=== PATIENT | female | born 1960 | race Caucasian/White ===

== ENCOUNTER 2020-09-14 07:12 | Emergency (ER) | payer OTHER, SELFPAY ==
[2020-09-14 07:30] VITALS: BP 176/92; PULSE 82; RESP 18; TEMP 36.6; O2SAT 98; BMI 24.7
--- NOTE | 2020-09-14 08:42 | ED.DENTAL ---
HPI - Dental/Oral General Chief complaint: Dental/Oral Stated complaint: DENTAL PAIN Time Seen by Provider: 09/14/20 08:28 Source: patient Mode of arrival: ambulatory History of Present Illness HPI Narrative: 60-year-old female with a past medical history of hypertension presenting to ED complaining of left-sided upper and lower dental pain worsening since last week. Reports poor dentition at baseline, however worsening recently. Admits pain radiates to the ear and throat, which decreased p.o. intake due to pain. Denies fever, chills, drainage from area, oral swelling/inability to swallow/drooling MD Complaint: tooth pain Related Data Previous Rx's Medication Instructions Recorded acetaminophen-codeine 1 tab PO Q8H PRN 3 Days #9 tab 09/14/20 amoxicillin-pot clavulanate 1 tab PO Q12H 7 Days #14 tab 09/14/20 [Augmentin] Allergies Allergy/AdvReac Type Severity Reaction Status Date / Time acetaminophen [From Percocet] Allergy Mild Itching Verified 09/14/20 07:55 oxycodone [From Percocet] Allergy Mild Itching Verified 09/14/20 07:55 Review of Systems Review of Systems: Constitutional: No Weight loss, No Fever, No Chills ENT/Mouth: + Ear Pain, No Nasal Congestion, No Sinus Pain, No Hoarseness, No sore throat, No Rhinorrhea, No Swallowing Difficulty, +dental pain Skin: No Skin Lesions, No rash Yes all other systems are reviewed and are negative PMFSH Past Medical History Attestation statement: The following information was validated with the patient. Medical History (Updated 09/14/20 @ 08:42 by NASEEM Islas) Hypertension Social History Social History Advance Directives: No Advance Directives Information Provided: No Physical Exam Vital Signs: Vital Signs: Vital Signs Temp Pulse Resp BP Pulse Ox 09/14/20 07:30 97.8 F 82 18 176/92 H 98 Body Mass Index 24.7 Const: General: cooperative and healthy appearing Orientation/consciousness: patient oriented x3 Limitations: no limitations HENMT: Other: diffuse dental caries. Right lower gums irritated /erythematous with ttp. No fluctuance/induration or signs of cellulitis. No visible pulp Head: Yes normal to inspection Ears: hearing grossly normal bilaterally and TM's normal bilaterally General nose exam: Normal external nose present Face and sinus: Yes normal facial exam Mouth: Normal oral and palatal mucosa present and oropharynx normal Teeth and gingiva: caries and poor dentition Throat: Yes posterior oropharynx normal and Yes uvula midline Eyes: General: appearance normal, both eyes and all related structures EOM: EOMs intact bilaterally Neck: Neck: Yes normal visual inspection Skin: Rashes: no rashes Wounds: no wounds Neuro: General: patient oriented x3 Gait exam (Neuro): Normal gait present Extrem: General: Yes normal to inspection MDM - Dental/Oral MDM Narrative Medical decision making narrative: likely early dental infection/ acute on chronic dental pain Differential Diagnosis Differential diagnosis: Likely dental caries and toothache Discharge Plan Discharge Clinical Impression: Toothache, Dental caries Patient Disposition: Home, Self-Care Instructions: Toothache (ED), Mouth Care (ED) Additional Instructions: you likely have an early dental infection. Augmentin as an antibiotic, take as prescribed Tylenol with codeine is a opiate pain medication, take with food, take only when pain is severe In addition he should be taking Tylenol/ and Motrin at home Do not exceed 4 g of Tylenol in 1 day Follow-up with her dentist on a pain becomes unbearable, you fevers, or drainage from her mouth return to the ED Prescriptions: New amoxicillin-pot clavulanate [Augmentin] 875-125 mg tablet 1 tab PO Q12H 7 Days Qty: 14 RF: 0 acetaminophen-codeine 300-30 mg tablet 1 tab PO Q8H PRN (Reason: pain) 3 Days Qty: 9 RF: 0 Referrals: Millie Torres MD [Primary Care Provider] - 2 days Stand Alone Forms: Work/School Release
== END 2020-09-14 08:57 | disposition home or self-care (01) ==
PROVIDERS: Emergency Provider Emergency Medicine; PCP Family Medicine
DX: K02.9 Dental caries, unspecified (principal); K08.89 Other specified disorders of teeth and supporting structures; I10 Essential (primary) hypertension
CPT/HCPCS: 99283; 99284

== ENCOUNTER 2020-09-21 10:13 | Outpatient (REF) | payer OTHER, SELFPAY ==
[2020-09-21 10:53] LABS: COVID-19 Test Negative (Negative)
== END 2020-09-21 10:14 | disposition home or self-care (01) ==
LOC: HO.LAB 10:13
PROVIDERS: Visit Provider Internal Medicine
DX: Z20.828 Contact with and (suspected) exposure to other viral communicable diseases (principal)
CPT/HCPCS: 87635

== ENCOUNTER 2020-09-26 10:04 | Outpatient (REF) | payer OTHER, SELFPAY ==
[2020-09-26 10:40] LABS: COVID-19 Test Negative (Negative)
== END 2020-09-26 10:05 | disposition home or self-care (01) ==
LOC: HO.LAB 10:04
PROVIDERS: Visit Provider Internal Medicine
DX: Z20.828 Contact with and (suspected) exposure to other viral communicable diseases (principal)
CPT/HCPCS: 87635

== ENCOUNTER 2021-08-21 06:31 | Emergency (ER) | payer OTHER, SELFPAY ==
[2021-08-21 06:56] VITALS: BP 168/99; PULSE 77; RESP 16; TEMP 37.1; O2SAT 98; BMI 27.1
--- NOTE | 2021-08-21 06:59 | ED.GENADULT ---
HPI - General Adult General Chief complaint: General Medical Stated complaint: Throat pain, COVID - per PT Time Seen by Provider: 08/21/21 06:58 Source: patient Mode of arrival: ambulatory Limitations: no limitations History of Present Illness HPI narrative: 61-year-old female came in for evaluation of sore throat. This is a 61-year-old female came in for sore throat for a week, patient was seen and evaluated by her PCP had a negative COVID testing, patient was started on Z-Oumar (last dose is today). Patient's symptoms still persist patient work as a nurse in the hospital, however patient has been vaccinated for COVID and using universal precautions. Related Data Previous Rx's Medication Instructions Recorded acetaminophen 300 mg-codeine 30 mg 1 tab PO Q8H PRN 3 Days #9 tab 09/14/20 tablet amoxicillin 875 mg-potassium 1 tab PO Q12H 7 Days #14 tab 09/14/20 clavulanate 125 mg tablet (Augmentin) prednisone 20 mg tablet 20 mg PO BID #10 tab 08/21/21 Allergies Allergy/AdvReac Type Severity Reaction Status Date / Time acetaminophen [From Percocet] Allergy Mild Itching Verified 09/14/20 07:55 oxycodone [From Percocet] Allergy Mild Itching Verified 09/14/20 07:55 Review of Systems Review of Systems: All other systems are reviewed and are negative Constitutional: Reports as per HPI and Reports no additional constitutional complaints Eyes: Reports as per HPI and Reports no additional eye complaints Reports system reviewed and no additional complaints, except as documented Cardiovascular: Reports as per HPI and Reports no additional cardiovascular complaints Respiratory: Reports as per HPI and Reports no additional respiratory complaints Gastrointestinal: Reports as per HPI and Reports no additional gastrointestinal complaints Genitourinary: Reports no additional female genitourinary complaints Musculoskeletal: Reports no additional musculoskeletal complaints Skin/Breast: Reports system reviewed and no additional complaints, except as docu Psychiatric: Reports no additional psychiatric complaints Endocrine: Reports no additional endocrine complaints Hematologic/Lymphatic: Reports no additional hematologic/lymphatic complaints Allergic/Immunologic: Reports no additional allergic/immunologic complaints Reports system reviewed and no additional complaints, except as documented and Reports Abnormal speech present PMFSH Past Medical History Medical History Hypertension Social History Social History Advance Directives: No Advance Directives Information Provided: Yes Physical Exam Vital Signs: Vital Signs: Last Vital Signs Temp 98.7 F 08/21/21 06:56 Pulse 77 08/21/21 06:56 Resp 16 08/21/21 06:56 BP 168/99 H 08/21/21 06:56 Pulse Ox 98 08/21/21 06:56 Body Mass Index 27.1 Vital signs have been reviewed as appeared to be correct. Blood pressure normal. Heart rate normal. Respiration rate normal. Temperature normal. Oxygen saturation normal. Appearance: Alert. Oriented X3. No acute distress. Head: Normal external exam. Normocephalic. Atraumatic. No Daniel signs noted. No raccoon eyes noted Eyes: PERRLA. EOMI. Conjunctiva and sclera normal. Eyelids normal. ENT: TM's Normal. Pharynx normal. Uvula midline. Moist mucous membranes. No trismus noted. No drooling noted. No muffled voice noted. Neck: Normal inspection. Neck supple. FROM. No adenopathy. Thyroid Normal. No meningeal signs. No neck mass noted. CVS: Normal heart rate and rhythm. Heart sound normal. No murmurs noted. Pulses normal throughout. Respiratory: No respiratory distress. Painless inspiration. Breath sounds normal. No wheezes/rales/rhonchi noted. Chest nontender. No accessory muscle usage noted or decreased air movement noted. Abdomen: Soft and nontender. Bowel sounds normal in all 4 quadrants. No distention noted. No organomegaly noted. No visible injury noted. Back: No CVA tenderness. Full range of motion noted. Skin: Skin warm and dry. Normal skin color. Normal skin turgor. No rashes/lesions/lacerations noted. Extremities: No lower extremity edema. Extremities exhibit normal range of motion. Extremities nontender. Neuro: Oriented X 3. Cranial nerve exam: II-XII are grossly intact No motor deficit. No sensory deficit. Reflexes normal. Course Course Course Narrative: Assessment and plan. 59-year-old female with viral meningitis, no evidence of strep pharyngitis, negative COVID testing. Patient finish course of Z-Oumar with no improvement. Will prescribe 5 days of flow does course of prednisone might help the patient's symptoms. Medical Decision Making Lab Data Lab results reviewed: Yes I reviewed the patient's lab results. Labs: Lab Results 08/21/21 08/21/21 08/21/21 Range/Units 07:50 07:55 08:04 Coronavirus (PCR) NEGATIVE (Negative) Monoscreen Negative (Negative) Influenza Type A (PCR) NEGATIVE (Negative) Influenza Type B (PCR) NEGATIVE (Negative) RSV RNA Qual (PCR) NEGATIVE (Negative) S. pyogenes GrpA KAYLA Negative (Negative) Discharge Plan Discharge Clinical Impression: Acute viral pharyngitis Patient Disposition: Home, Self-Care Instructions: Pharyngitis (ED) Prescriptions: New prednisone 20 mg tablet 20 mg PO BID Qty: 10 RF: 0 No Action amoxicillin-pot clavulanate [Augmentin] 875-125 mg tablet 1 tab PO Q12H 7 Days Qty: 14 RF: 0 acetaminophen-codeine 300-30 mg tablet 1 tab PO Q8H PRN (Reason: pain) 3 Days Qty: 9 RF: 0 Referrals: Physician,Nonstaff [Primary Care Provider] - 2 days
[2021-08-21 08:12] LABS: Strep A Nucleic Acid Negative (Negative)
[2021-08-21 08:43] LABS: Influenza A PCR NEGATIVE (Negative); Influenza B PCR NEGATIVE (Negative); Resp Syncy Virus RNA Qual PCR NEGATIVE (Negative); SARS COV2 PCR INHOUSE NEGATIVE (Negative)
[2021-08-21 09:09] LABS: Monotest Negative (Negative)
== END 2021-08-21 09:51 | disposition home or self-care (01) ==
PROVIDERS: Emergency Provider Emergency Medicine
DX: J02.9 Acute pharyngitis, unspecified (principal); Z79.899 Other long term (current) drug therapy; Z20.822 Contact with and (suspected) exposure to COVID-19
CPT/HCPCS: 0241U; 36415; 86308; 87651; 99283